=== PATIENT | male | born 1975 | race Caucasian/White ===

== ENCOUNTER 2024-02-08 16:52 | Emergency (ER) | payer BC, SELFPAY ==
[2024-02-08] VITALS (8 sets, daily range): BP systolic 118–143; BP diastolic 74–92; PULSE 53–66; RESP 17–20; TEMP 36.3; O2SAT 98–100
--- NOTE | ~2024-02-08 | CT_ITS ---
CT abdomen pelvis w con Ordering provider: Jessica Montaño MD History: 48 years Male with . Hx colon ca; pain lateral to umbilicus; LLQ TTP . Radiation reduction t echnique utilized. DLP is 224.27 mGy.. 100 mL Omnipaque 350 is given. Comparison: None. Technique: CT abdomen and pelvis with IV and without oral contrast. Radiation reduction technique uti lized. DLP is 224.27 mGy.. 100 mL Omnipaque 350 is given. Findings: VISUALIZED LOWER CHEST: Normal. UPPER ABDOMINAL ORGANS: Liver: Normal. Gallbladder: Normal. Spleen: Normal. Stomach/duodenum: Normal. Pancreas: Normal. Slightly dilated pancreatic duct. Follow-up advised. Adrenals: Normal. Kidneys: Normal. PELVIC ORGANS: The bladder is normal. BOWEL AND MESENTERY: Colon: Dilatation seen in the stomach, small bowel and large bowel with postoperative changes seen in the area of the cecum. No definite obstructing lesion seen. The appendix is not demonstrated. Small Bowel: Intestinal obstruction involving the small and large bowel with dilatation near to the r ectosigmoid area. Peritoneum/mesentery: No free air or free fluid. No mesenteric lymphadenopathy. RETROPERITONEUM: Mild atheromatous disease of the abdominal aorta. No retroperitoneal lymphadenopat hy. MUSCULOSKELETAL: Superficial soft tissues: Slightly enlarged inguinal lymph nodes. Bones: Age appropriate degenerative changes of the spine. IMPRESSION: 1. Bowel obstruction extending from the rectosigmoid area to the small bowel and with slight dilatat ion of the stomach. Differential includes ileus and mechanical obstruction by: Occlusion. Colonoscopy is advised.No evidence of perforation with no free air or fluid. Reviewed, dictated and finalized at location A. IMPRESSION: 1. Bowel obstruction extending from the rectosigmoid area to the small bowel a nd with slight dilatation of the stomach. Differential includes ileus and mecha nical obstruction by: Occlusion. Colonoscopy is advised.No evidence of perforat ion with no free air or fluid.
--- NOTE | ~2024-02-08 | XR_ITS ---
XR abdomen gastric tube insert Ordering provider: Jessica Montaño MD History: . ng tube . Comparison: None. FINDINGS/impression: Nasogastric tube is seen with the tip in the body of the stomach. The sidehole is near to the gastroe sophageal junction. Advancement by about 2 to 3 cm is advised. BOWEL: Nonobstructive bowel gas pattern. ORGANOMEGALY: None. SIGNIFICANT PATHOLOGIC CALCIFICATIONS: None. OTHER: No free air is seen under the diaphragm. Reviewed, dictated and finalized at location A.
[2024-02-08 17:30] LABS: Basophils Absolute Auto 0.1 K/mm3 (0.0-0.1); Basophils Percent Auto 0.3 % (0.2-1.2); Eosinophils Absolute Auto 0.3 K/mm3 (0-0.3); Eosinophils Percent Auto 2.3 % (0-4.4); Hematocrit 44.9 % (42.0-52.0); Hemoglobin 15.3 g/dL (14.0-18.0); Immature Granulocyte Absolute 0.05 K/mm3 (0.00-0.031); Immature Granulocyte Percent A 0.3 % (0-0.5); Lymphocytes Absolute Auto 2.46 K/mm3 (0.9-3.2); Lymphocytes Percent Auto 16.8 % (18.3-44.2); Mean Corpuscular HGB Conc 34.1 g/dl (32-36); Mean Corpuscular Hemoglobin 31.4 pg (26-34); Mean Platelet Volume 8.9 fl (7.4-10.4); Monocytes Absolute Auto 1.1 K/mm3 (0.1-0.6); Monocytes Percent Auto 7.4 % (2.6-8.5); Neutrophils Absolute Auto 10.7 K/mm3 (1.3-6.7); Neutrophils Percent Auto 72.9 % (45.5-73.1); Platelet Count Result 320 k/mm3 (150-375); Red Blood Count 4.88 M/mm3 (4.6-6.20); Red Cell Distribution Width 12.8 % (11.5-14.5); White Blood Count 14.7 K/mm3 (4.5-10.0)
--- NOTE | 2024-02-08 17:38 | PC.NURSE ---
Patient noted laying on floor of waiting room, states the chairs are uncomfortable and patient wants to lay down .
[2024-02-08 17:41] LABS: Alanine Aminotransferase 31 U/L (6-50); Albumin Level 4.7 g/dL (3.5-5.1); Alkaline Phosphatase 196 U/L (38-126); Anion Gap 10 mmol/L (4-12); Aspartate Amino Transferase 33 U/L (17-59); Bilirubin,Total 0.5 mg/dL (0.2-1.3); Blood Urea Nitrogen 25 mg/dL (9-20); Calcium 9.9 mg/dL (8.4-10.2); Carbon Dioxide 23 mmol/L (22-30); Chloride 107 mmol/L (98-107); Estimated CRCL calculation 77 ml/min; Estimated Glomerular Filt Rate > 60; Glucose 108 mg/dL (65-110); Lipase 63 U/L (23-300); Potassium 4.4 mmol/L (3.4-5.0); Sodium 140 mmol/L (137-145)
[2024-02-08 17:47] LABS: Appearance Urine Cloudy (Clear); Bacteria Urine None Seen /hpf; Bilirubin Urine Negative (Negative); Blood Urine Negative (Negative); Calcium Oxalate Crystals Urine Present /hpf; Color Urine Yellow (Yellow); Glucose Urine UA Negative (Negative); Ketones Urine Negative (Negative); Leukocyte Esterase Ur Negative LEU/UL (Negative); Nitrate Urine Negative (Negative); Protein Urine 1+ mg/dL (Negative); Specific Grav Ur 1.042 (1.001-1.035); Squamous Epithelial Cell Urine None Seen /hpf (Few); WBC Urine 0-5 /hpf (0-3); pH Urine 5.5 (5.0-9.0)
[2024-02-08 17:48] LABS: Add Urine Microscopic? YES
--- NOTE | 2024-02-08 18:22 | PC.NURSE ---
Patient belongings scattered around parking lot, patient stated he no longer wanted to be seen and walked out of ED.
--- NOTE | 2024-02-08 18:44 | PC.NURSE ---
Patient stated he would now like to be seen, patient has belongings w/him in waiting room.
--- NOTE | 2024-02-08 19:20 | ED.ABDPAIN ---
HPI - Abdominal Pain General Chief Complaint: Abdominal Pain Stated Complaint: ABD pain Time Seen by Provider: 02/08/24 19:18 Source: patient Mode of arrival: ambulatory Limitations: no limitations History of Present Illness HPI narrative: 48-year-old male presents with report of abdominal pain to the right and left of his umbilicus and radiating to his back Of a few days duration. he states he had been having 4 days of watery stool. He had his last bowel movement this morning and it was also watery, None since. He notes that he had a fever yesterday but not today. He said he presented to [facility] her the symptoms yesterday and was told that he had colitis. he states is not prescribed any medications despite being told he would. His pain has gotten worse. he is also concerned that he is dehydrated and notes that his appetite has been poor. He had some vomiting earlier notes that was blood streaked. Related Data Allergies Allergy/AdvReac Type Severity Reaction Status Date / Time No Known Allergies Allergy Unverified 02/08/24 17:13 [facility] Past Medical History Medical History History of colon cancer Surgical History Surgical History (Updated 02/08/24 @ 22:45 by Jessica Montaño MD) History of colon resection reports 2 foot resection w/ end-to-end anastomosis; [facility] History of colonoscopy [facility] Social History Social History Additional living arrangements comments: Patient presents with belongings in bag and trash can, suspect homeless/housing insecurity Exam Narrative: GENERAL: well-nourished, and in no acute distress. HEAD: Normocephalic, atraumatic. EYES: Non injected, non icteric ENT: Nares clear, no rhinorrhea or epistaxis. NECK: Supple. CHEST: Speaking in full sentences. No respiratory distress. HEART: bradycardic rate and rhythm. . ABDOMEN: Flat, Soft, nondistended. Patient has generalized tenderness to palpation though particularly in the left lower quadrant. EXTREMITIES: Normal range of motion. No edema. SKIN: Warm, dry, no rash. NEURO: No focal deficits. Alert and oriented x3. PSYCH: Normal mood and affect. Course Vital Signs Vital signs: Vital Signs Temperature 97.3 F L 02/08/24 17:06 Pulse Rate 53 L 02/08/24 17:06 Respiratory Rate 17 02/08/24 17:06 Blood Pressure 143/92 H 02/08/24 17:06 Pulse Oximetry 100 02/08/24 17:06 Oxygen Delivery Room Air 02/08/24 17:06 Temperature 97.3 F L 02/08/24 17:06 Pulse Rate 59 L 02/08/24 23:30 Respiratory Rate 20 02/08/24 23:30 Blood Pressure 141/88 H 02/08/24 23:31 Pulse Oximetry 100 02/08/24 23:31 Oxygen Delivery Room Air 02/08/24 17:06 MDM - Abdominal Pain MDM Narrative Medical decision making narrative: Patient presents with generalized abdominal pain of a few days duration the particularly worsened over the past 24-48 hours. He points to the right and left of his umbilicus and has tenderness to palpation throughout particularly in the left lower quadrant. He states he presented for these symptoms yesterday to [facility] and told he has colitis. In the emergency department he is afebrile with vital signs notable for mild bradycardia and a very slightly elevated diastolic blood pressure. patient has leukocytosis and a lactic acidosis. IV fluids given with repeat pending. Normal renal function with no marked electrolyte abnormalities. patient discussed with general surgeon on-call Dr. Hanson. However, given that gastroenterology is not available until Sunday, Dr Hanson has recommend transfer to a facility with these services. GIven that patient reports being seen yesterday at an [facility] facility, started transfer process there. However, [facility] has not beds per academic services coordinator. Discussed with general
[2024-02-08 19:48] LABS: Lactic Acid Reflex 2.4 mmol/L (0.7-2.0)
[2024-02-08 20:18] LABS: Magnesium 2.1 mg/dL (1.6-2.3)
[2024-02-08] MEDS: SODIUM CHLORIDE 0.9% IV 1,000 ML 999 ML IV CONT ×2 (20:22)
[2024-02-08] MEDS: MORPHINE SULFATE (*CRX) 4 MG/ML INJ IV PUSH (20:22)
[2024-02-08] MEDS: ONDANSETRON INJ 4 MG/2 ML VIAL IV PUSH (20:22)
[2024-02-08 20:57] LABS: Influenza A QL RT-PCR Negative (Negative); Influenza B QL RT-PCR Negative (Negative); SARS-CoV-2 RNA PCR Negative (Negative)
--- NOTE | 2024-02-08 21:30 | PC.NURSE ---
Ave, pt rehab sponsor, called for update. With pt permission, update given. She states she is trying to find placement for him upon d/c so to let her know whether he will be admitted tonight or not. She can be reached at [phone].
[2024-02-08 22:37] LABS: Reflex Lactic Acid Yes or No Add Lactic
[2024-02-08] MEDS: PIPERACILLIN/TAZ 4.5G/NS 100ML 4.5 GM/100 ML BAG IVPB (23:10)
--- NOTE | 2024-02-08 23:17 | PC.NURSE ---
Report given to KEIRY Rose at [facility]. Called to [phone] ext. [phone]. Pt going to room 320.
--- NOTE | 2024-02-08 23:30 | PC.NURSE ---
pt tolerated ng tube placement well but continues to argue that the tube is in the right spot. Xray verification in process.
[2024-02-08 23:54] LABS: Lactic Acid 0.8 mmol/L (0.7-2.0)
--- NOTE | 2024-02-09 00:06 | PC.NURSE ---
pt refusing gown at this time.
--- NOTE | 2024-02-09 00:10 | PC.NURSE ---
nurse report to [facility] at this time.
== END 2024-02-09 00:34 | disposition short-term general hospital (02) ==
PROVIDERS: Family Medicine; Emergency Provider Student in an Organized Health Care Education/Training Program
DX: K56.609 Unspecified intestinal obstruction, unspecified as to partial versus complete obstruction (principal); D72.829 Elevated white blood cell count, unspecified; R74.8 Abnormal levels of other serum enzymes; R79.89 Other specified abnormal findings of blood chemistry; Z20.822 Contact with and (suspected) exposure to COVID-19; Z85.038 Personal history of other malignant neoplasm of large intestine
CPT/HCPCS: 36415; 74177; 80053; 81001; 83605; 83690; 83735; 85025; 87040; 87636; 96361; 96365; 96375; 99285; J2270; J2405; J2543; J7030; Q9967